=== PATIENT | female | born 1975 | race Caucasian/White ===

== ENCOUNTER 2016-03-24 05:32 | Inpatient (IN) | payer BC ==
[~2016-03-24] VITALS: Ht 167.6 cm; Wt 61.8 kg
[2016-03-24] VITALS (20 sets, daily range): BP systolic 90–113; BP diastolic 34–60; PULSE 78–105; TEMP 97.8–98.3
[~2016-03-24 05:32] MED LIST: ALIGN; CEPHALEXIN500 M1 PO; FLAGYL500 MG PO; IBIFON 600600 MG PO; IBS MEDICATION; IRON325 MG PO; NO HOME MEDICATIONS; NORCO 325 MG-51 TAB PO; PERCOCET 325 MG1 TA2 PO; PRENATAL1 TA1 PO; PRENATAL1 TA4 PO; SENOKOT S 50 MG1 TAB PO
[2016-03-24] MEDS ORDERED: PROBIOTIC FORMU1 CAP PO (06:34)
[2016-03-24] MEDS ORDERED: VITAMIN D 1001000 IU PO (06:36)
[2016-03-24] MEDS ORDERED: [UNRECOGNIZED DRUG - OTHER] PO (06:36)
[2016-03-24 06:43] LABS: BASO % 0.5 % (0.0-2.0); EOS # 0.1 (0.0-0.7); EOS % 1.4 % (0-4.0); GRAN # 5.3 (1.4-6.5); LYMPH # 2.2 (1.2-3.4); LYMPH % 26.4 % (20.0-51.0); MEAN CELL VOLUME 92 fl (80.0-100.0); MEAN CORPUSCULAR HEMOGLOBIN 31 pg (27.0-31.0); MEAN CORPUSCULAR HGB CONC 33 g/dl (33.0-37.0); MEAN PLATELET VOLUME 10.1 fl (7.4-10.4); MONO # 0.6 (0.1-0.6); PLATELET COUNT 287 K/mm3 (130-400); RED BLOOD COUNT 3.93 M/mm3 (4.10-5.30); REDCELL DISTRIBUTION WIDTH-CV 13.1 % (11.5-14.5); WHITE BLOOD COUNT 8.3 K/mm3 (4.8-10.8)
[2016-03-25 08:45] VITALS: BP 91/53; PULSE 74; TEMP 97.9
[2016-03-25 20:05] VITALS: BP 117/59; PULSE 77; TEMP 98.2
[2016-03-26 09:30] VITALS: BP 110/70; PULSE 82; TEMP 98.1
[2016-03-26 16:30] VITALS: BP 120/60; PULSE 68; TEMP 98.2
[2016-03-26 20:30] VITALS: BP 109/66; PULSE 79; TEMP 98
[2016-03-27 06:45] VITALS: BP 100/50; PULSE 73; TEMP 97.9
[2016-03-27] MEDS ORDERED: PERCOCET 325 MG1 TA2 PO (09:03)
[2016-03-27] MEDS ORDERED: IBU800 M1 PO (09:03)
== END 2016-03-27 16:45 | disposition home or self-care (01) | DRG 766 ==
LOC: OB 05:32
PROVIDERS: Obstetrics & Gynecology
PROC: 10D00Z1 Extraction of Products of Conception, Low, Open Approach (ICD-10-PCS; principal; 2016-03-24)
PROC: 0UNF0ZZ Release Cul-de-sac, Open Approach (ICD-10-PCS; 2016-03-24)
DX: O34.211 Maternal care for low transverse scar from previous cesarean delivery (principal); N85.8 Other specified noninflammatory disorders of uterus; O69.81X0 Labor and delivery complicated by cord around neck, without compression, not applicable or unspecified; O09.523 Supervision of elderly multigravida, third trimester; O99.89 Other specified diseases and conditions complicating pregnancy, childbirth and the puerperium; N73.6 Female pelvic peritoneal adhesions (postinfective); O34.13 Maternal care for benign tumor of corpus uteri, third trimester; D25.2 Subserosal leiomyoma of uterus; O99.013 Anemia complicating pregnancy, third trimester; D64.9 Anemia, unspecified; Z3A.41 41 weeks gestation of pregnancy; Z37.0 Single live birth
CPT/HCPCS: J0690; J1885; J2175; J2270; J2370; J2400; J2405; J2590; J2765; J7120

== ENCOUNTER → 2016-03-29 | Outpatient (CLI) | payer BC ==
[~2016-03-29] MED LIST changes: +IBU800 M1 PO; +PROBIOTIC FORMU1 CAP PO; +VITAMIN D 1001000 IU PO; +[UNRECOGNIZED DRUG - OTHER] PO
== END ==
LOC: LAC 11:54
DX: Z39.1 Encounter for care and examination of lactating mother (principal); Z71.89 Other specified counseling

== ENCOUNTER → 2017-06-05 | Outpatient (CLI) | payer BC | LOC: MC.RAD 09:56 | DX: Z12.31 Encounter for screening mammogram for malignant neoplasm of breast (principal); N64.89 Other specified disorders of breast ==

== ENCOUNTER → 2017-06-21 | Outpatient (CLI) | payer BC | LOC: MC.RAD 12:56 | DX: R92.8 Other abnormal and inconclusive findings on diagnostic imaging of breast (principal) ==

== ENCOUNTER → 2017-12-24 | Outpatient (CLI) | payer BC | LOC: COL.RAD 10:30 | DX: E04.1 Nontoxic single thyroid nodule (principal) ==

== ENCOUNTER → 2018-10-28 | Outpatient (CLI) | payer BC | LOC: MC.RAD 13:57 | DX: Z12.31 Encounter for screening mammogram for malignant neoplasm of breast (principal) ==

== ENCOUNTER → 2020-07-09 | Outpatient (CLI) | payer BC | LOC: MC.RAD 08:00 | DX: Z12.31 Encounter for screening mammogram for malignant neoplasm of breast (principal) ==

== ENCOUNTER → 2021-07-27 | Outpatient (CLI) | payer BC | LOC: MC.RAD 10:44 | DX: Z12.31 Encounter for screening mammogram for malignant neoplasm of breast (principal) ==

== ENCOUNTER → 2023-01-30 | Outpatient (CLI) | payer BC | LOC: CANPRECLI → MC.RAD 11-20 10:00 | DX: Z12.31 Encounter for screening mammogram for malignant neoplasm of breast (principal) ==